=== PATIENT | female | born 1955 | race Caucasian/White ===

== ENCOUNTER 2020-09-08 10:28 | Outpatient (CLI) | payer BC, SELFPAY ==
--- NOTE | 2020-09-08 10:34 | MM_ITS ---
WS: [id number] Exam: [place] [id number] Date/Time of Exam: 09/08/2020 10:54 AM Reason For Exam: SCREENING VIEWS: MLO and CC views both breasts. Comparison made with prior exam of 09/16/2014, 09/06/2017 and 11/13/2018. Findings: There was no sign of mass, architectural distortion or suspicious calcification in either breast. Fa tty MM/[place] [id number] Impression: BI-RADS: 2-Benign FOLLOW-UP: 1 Year Follow-up This mammogram was also analyzed by the Computer Aided Detection System R2 Imag e Teaching Aide.
== END 2020-09-08 10:29 | disposition home or self-care (01) ==
PROVIDERS: PCP Nurse Practitioner Family; Visit Provider Nurse Practitioner Family
DX: Z12.31 Encounter for screening mammogram for malignant neoplasm of breast (principal)
CPT/HCPCS: 77067

== ENCOUNTER 2021-09-08 09:36 | Outpatient (CLI) | payer BC, SELFPAY ==
--- NOTE | 2021-09-08 09:51 | MM_ITS ---
WS: [id number] .. BILATERAL SCREENING 3D TOMOSYNTHESIS DIGITAL MAMMOGRAM WITH CAD HISTORY: SCREENING COMPARISON: 09/08/2020, 11/12/2018 Bilateral CC and MLO views submitted. Computer aided detection analyzed. Breast composition: There are scattered areas of fibroglandular density. No suspicious masses, microc alcifications or architectural distortion. MM/[place] [id number] IMPRESSION: BI-RADS: 1-Negative FOLLOW UP: 1 Year Follow-up
== END 2021-09-08 09:37 | disposition home or self-care (01) ==
LOC: RAD 09:42
PROVIDERS: PCP Nurse Practitioner Family; Visit Provider Nurse Practitioner Family
DX: Z12.31 Encounter for screening mammogram for malignant neoplasm of breast (principal)
CPT/HCPCS: 77063; 77067

== ENCOUNTER 2022-10-19 10:16 | Outpatient (CLI) | payer OTHER, SELFPAY ==
--- NOTE | 2022-10-19 10:31 | MM_ITS ---
WS: [id number] SCREENING DIGITAL TOMOSYNTHESIS MAMMOGRAM WITH CAD HISTORY: SCREENING COMPARISON: 09/08/2021, 09/08/2020 Bilateral CC and MLO with tomosynthesis views submitted. Synthetic mammography reviewed. Computer aid ed detection analyzed. Breast composition: There are scattered areas of fibroglandular density. No suspicious masses, microc alcifications or architectural distortion. Vascular calcifications. MM/[place] [id number] IMPRESSION: BI-RADS: 1-Negative FOLLOW UP: 1 Year Follow-up
== END 2022-10-19 10:17 | disposition home or self-care (01) ==
PROVIDERS: PCP Nurse Practitioner Family; Visit Provider Nurse Practitioner Family
DX: Z12.31 Encounter for screening mammogram for malignant neoplasm of breast (principal)
CPT/HCPCS: 77063; 77067

== ENCOUNTER 2023-08-01 11:12 | Outpatient (CLI) | payer OTHER, SELFPAY ==
--- NOTE | 2023-08-01 | ECG_ITS ---
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 Interpretive Statements NAME OF STUDY: TREADMILL STRESS TEST INDICATION: ATYPICAL CHEST PAIN; DIZZINESS PROCEDURE: At the baseline, the patient's blood pressure was 142/88 with a heart rate of 83. The baseline electrocardiogram showed normal sinus rhythm with diffuse nonspecific T wave changes. Poor R wave progression. Possible old high lateral wall CT. The patient exercised for 6 minutes on a standard Bryce protocol. Patient attained a maximum heart rate of 164 beats per minute(109% of the maximum predicted heart rate) with a blood pressure at the peak exercise of 173/72 mm Hg. The EKG at the peak exercise revealed diffuse nonspecific ST-T changes. Patient did not have any chest pain or any significant cardiac arrhythmias with the exercise During the recovery phase, there were no new changes. Blood pressure at the end of the recovery phase was 143/59 mm Hg with a heart rate of 91 per minute. CONCLUSION: 1. Nonspecific EKG response to treadmill exercise 2. No exercise-induced chest pain or cardiac arrhythmia 3. Slightly impaired exercise tolerance, attained a maximum of 7.0 METs Electronically Signed On 08-06-2023 19:50:30 CDT by Ronen Sheridan M.D. [email or web address]
[2023-08-01 11:51] VITALS: BMI 23.1
[2023-08-01 12:28] VITALS: BP 136/76; PULSE 81
== END 2023-08-01 11:13 | disposition home or self-care (01) ==
PROVIDERS: PCP Nurse Practitioner Family; Visit Provider Nurse Practitioner Family
DX: R42 Dizziness and giddiness (principal); R07.89 Other chest pain; I10 Essential (primary) hypertension
CPT/HCPCS: 93017

== ENCOUNTER 2024-01-24 14:12 | Outpatient (CLI) | payer OTHER, SELFPAY ==
--- NOTE | 2024-01-24 14:19 | MM_ITS ---
WS: [id number] BILATERAL 3D TOMOSYNTHESIS DIGITAL SCREENING MAMMOGRAPHY WITH CAD CLINICAL INFORMATION: SCREENING HISTORY: Screening mammogram. No current complaints. COMPARISON: 2022 TECHNIQUE: Bilateral CC and MLO views. FINDINGS: Scattered fibroglandular densities bilaterally. No suspicious focal mass, asymmetry, calcifications, or architectural distortion. No evidence of malignancy. Incidental punctate calcification LEFT breast . Vascular calcification. MM/[place] [id number] IMPRESSION: DENSITY: There are scattered areas of fibroglandular density. BI-RADS: 2 - Benign. FOLLOW UP: 1 Year Follow-up Recommend return to annual screening mammography.
== END 2024-01-24 14:13 | disposition home or self-care (01) ==
PROVIDERS: PCP Nurse Practitioner Family; Visit Provider Nurse Practitioner Family
DX: Z12.31 Encounter for screening mammogram for malignant neoplasm of breast (principal)
CPT/HCPCS: 77063; 77067

== ENCOUNTER 2024-02-14 09:42 | Outpatient (CLI) | payer OTHER, SELFPAY ==
--- NOTE | 2024-02-14 09:49 | XR_ITS ---
WS: [id number] Exam: XR shoulder RT min 2V* [id number] Date/Time of Exam: 02/14/2024 9:51 AM Reason For Exam: RIGHT SHOULDER JOINT PAIN No fracture or dislocation. Degenerative change of the glenohumeral joint and the AC joint. Normal so ft tissues. IMPRESSION1. Mild to moderate degenerative change. No fracture.
== END 2024-02-14 09:43 | disposition home or self-care (01) ==
PROVIDERS: PCP Nurse Practitioner Family; Visit Provider Family Medicine
DX: M25.511 Pain in right shoulder (principal)
CPT/HCPCS: 73030

== ENCOUNTER 2024-03-26 07:28 | Day surgery (SDC) | payer OTHER, SELFPAY ==
[2024-03-26 07:48] VITALS: BP 126/73; PULSE 52; RESP 18; TEMP 36.6; O2SAT 99; BMI 23.1
[2024-03-26] MEDS: sodium chloride 0.9% 1,000 ML 30 ML IV (08:03)
--- NOTE | 2024-03-26 08:14 | P.HPUD_ITS ---
Surgery/Procedure H&P Update DATE OF PROCEDURE: March 26, 2024 DATE H&P PERFORMED: 03/06/24 H&P UPDATE INFORMATION: I have reviewed H&P completed within last 30 days, I have examined patient prior to procedure, No changes to prior documentation and H&[place] in [facility] [place] date indicated PLANNED PROCEDURE: Operation Date: 03/26/24 09:00 Proposed Procedures p Colonoscopy 22750, G0105, Z12.11(Not Applicable) - Sanjay Newberry MD
--- NOTE | 2024-03-26 08:14 | W.PM.OPSUD ---
Surgery/Procedure H&P Update DATE OF PROCEDURE: March 26, 2024 DATE H&P PERFORMED: 03/06/24 H&P UPDATE INFORMATION: I have reviewed H&P completed within last 30 days, I have examined patient prior to procedure, No changes to prior documentation and H&P is in [facility] [place] on date indicated PLANNED PROCEDURE: Operation Date: 03/26/24 09:00 Proposed Procedures p Colonoscopy 29955, G0105, Z12.11(Not Applicable) - Sanjay Newberry MD
--- NOTE | 2024-03-26 08:31 | ANES.PREANE2 ---
Pre-Anesthetic Assessment Height/Weight: Height 5 ft 6 in Weight 143 lb Temp Pulse Resp BP Pulse Ox O2 Del Method 97.8 F 52 L 18 126/73 99 Room Air 03/26/24 07:48 03/26/24 07:48 03/26/24 07:48 03/26/24 07:48 03/26/24 07:48 03/26/24 07:48 Preop Diagnosis: Screening colonoscopy Operation Date: 03/26/24 09:00 Proposed Procedures p Colonoscopy 14918, G0105, Z12.11(Not Applicable) - Sanjay Newberry MD Was Beta Mary Ann taken within 24 hours: N/A Was Clonidine taken within 24 hours: N/A Last intake: Intake Last Liquid Date 03/25/24 Last Liquid Time 20:00 Last Solid Date 03/24/24 Last Solid Time 18:00 Social No alcohol and No tobacco Exam alert, oriented x 3, clear to auscultation bilaterally and regular rate & rhythm (Ejection flow murmur heard on auscultation) Airway Submandibular: within normal limits Cervical ROM: within normal limits Mallampati: Class III Dentition: full Anesthetic Plan ASA status: 2 Anesthesia: MAC Other: No prior issues with anesthesia Completed bowel prep History of hypertension on amlodipine and lisinopril Patient denies any pulmonary issues States she had a murmur as a child but was not told of any murmur recently. Ejection flow murmur heard on auscultation over the left sternal border today. Patient states that she does not get short of breath with exertion. She works at [employer] Negative stress test earlier this year METs greater than 4 Plan for MAC anesthetic Medications/Allergies Home Medications Medication Instructions Recorded Confirmed Last Taken Type amlodipine 10 mg tablet 10 mg PO DAILY 02/28/24 03/26/24 03/25/24 History lisinopril 40 mg tablet 40 mg PO DAILY 02/28/24 03/26/24 03/26/24 History metoprolol tartrate 25 mg tablet 25 mg PO DAILY 02/28/24 03/26/24 03/26/24 History sertraline 25 mg tablet 25 mg PO BEDTIME 02/28/24 03/26/24 03/25/24 History simvastatin 20 mg tablet 20 mg PO BEDTIME 02/28/24 03/26/24 03/25/24 History ondansetron HCl 8 mg tablet 8 mg PO Q8H PRN nausea and 03/06/24 03/26/24 Unknown Rx vomiting #3 tabs aspirin 81 mg tablet,delayed 81 mg PO DAILY 03/20/24 03/26/24 03/25/24 History release fluticasone propionate 50 1 spray intranasal BID PRN Allergy 03/20/24 03/26/24 Unknown History mcg/actuation nasal Symptoms spray,suspension melatonin 10 mg tablet 10 mg PO DAILY 03/20/24 03/26/24 03/25/24 History ufzerndz-xbk-fezpn ac 400 1 tab PO DAILY 03/20/24 03/26/24 03/25/24 History mcg-calcium carb 500 mg-vit K1 20 mcg tablet (Women's 50 Plus Multivitamin) omega-3s 720 mg-dha 300 mg-epa 360 1 cap PO DAILY 03/20/24 03/26/24 03/25/24 History mg-fish oil 1,200 mg capsule triamcinolone acetonide 0.025 % 1 applic topical BID 03/20/24 03/26/24 Unknown History topical cream vitamins A,C,U-ueda-psqrib 4,296 1 cap PO BID 03/20/24 03/26/24 03/25/24 History mcg-226 mg-90 mg capsule (PreserVision AREDS) Allergies Allergy/AdvReac Type Severity Reaction Status Date / Time Sulfa (Sulfonamide Allergy Unknown Verified 03/26/24 07:47 Antibiotics) Current Medications Generic Name Dose Route Start Last Admin Trade Name Freq PRN Reason Stop Dose Admin Sodium Chloride 1,000 mls @ 30 mls/hr 03/26/24 07:45 03/26/24 08:03 Sodium Chloride 0.9% IV 30 mls/hr .Q24H JEAN-CLAUDE Administration PFSH Anesthesia Family History Other CAD (coronary artery disease) Social History Smoking and tobacco/nicotine status: former use of tobacco/nicotine Quit status (tobacco/nicotine): has quit using Data Anesthesia Cardiac Studies: No Data to Display
[2024-03-26 09:14] VITALS: BP 111/65; PULSE 56; RESP 18; TEMP 36.2; O2SAT 100
--- NOTE | 2024-03-26 09:20 | ANE.PACU2 ---
Inpatient post-anesthesia follow up: Airway intact: Yes Vital signs: Temperature 97.2 F Pulse Rate 70 Respiratory Rate 18 Blood Pressure 143/70 Pulse Oximetry 99 Oxygen Delivery Me thod Room Air Oxygen Flow Rate Fraction of Inspir ed Oxygen Hydration adequate: Yes Nausea and vomiting: No Pain level: 1 Mental status: Baseline
[2024-03-26 09:22] VITALS: BP 143/70; PULSE 70; RESP 18; TEMP 36.2; O2SAT 99
== END 2024-03-26 09:38 | disposition home or self-care (01) ==
PROVIDERS: PCP Nurse Practitioner Family; Visit Provider Surgery
PROC: 0DJD8ZZ Inspection of Lower Intestinal Tract, Via Natural or Artificial Opening Endoscopic (ICD-10-PCS; CPT 45378; principal; 2024-03-26 09:00)
DX: Z12.11 Encounter for screening for malignant neoplasm of colon (principal); D12.8 Benign neoplasm of rectum; K64.8 Other hemorrhoids; I10 Essential (primary) hypertension; Z87.891 Personal history of nicotine dependence
CPT/HCPCS: 45380; 88305; J2704; J7030

== ENCOUNTER 2025-02-15 17:45 | Outpatient (CLI) | payer OTHER, SELFPAY ==
--- NOTE | 2025-02-15 17:52 | XRR_ITS ---
PROCEDURE INFORMATION: Exam: XR Right Ribs with PA Chest Exam date and time: 02/15/2025 5:53 PM Age: 69 years old Clinical indication: Painful respiration; Additional info: Upper back/ RT lateral rib pain post fall x 3 days ago; Multiple small abrasions/hematoma to posterior RT rib area. TECHNIQUE: Imaging protocol: Radiologic exam of the right ribs with PA chest. Views: 3 views Total images: 1 COMPARISON: 1. CR XR chest 1V [id number] 04/03/2019 6:25 PM 2. CR XR shoulder RT min 2V* [id number] 02/14/2024 9:58 AM 3. CR XR thoracic spine 3V* [id number] 02/15/2025 5:53 PM FINDINGS: Limitations: No fiducial skin marker was placed at the site of clinical concern. Lungs: Right-sided small sub-5 mm stable pulmonary nodules characteristic of prior exposure to granulomatous disease or small pulmonary hamartomas, not significantly changed. Lungs are well-aerated without focal acute pathologic pulmonary parenchymal process. Pleural spaces: No significant pleural effusion. No pneumothorax. Heart/Mediastinum: Normal heart size. Vasculature: Mild aortic atherosclerotic calcification. Bones/joints: Moderate generalized degenerative changes of the vertebral column characterized by multilevel osteophyte formation, degenerative disc height loss and facet arthrosis commensurate with patient's age. Acromioclavicular joint mild chronic degenerative arthrosis. Shoulder glenohumeral osteoarthritis. No acute displaced fracture, subluxation or dislocation. Thoracolumbar S shaped 10-15 degree scoliosis curvature. Qualitative demineralization of bones (osteopenia) limiting evaluation for nondisplaced fractures. Soft tissues: Soft tissues are normal as visualized, demonstrating no masses or induration. XR/XR ribs RT mn 3V w CXR1V [id number] IMPRESSION: 1. No acute displaced fracture with an intermediate degree of confidence. 2. Thoracolumbar S shaped 10-15 degree scoliosis curvature. 3. No acute cardiopulmonary disease or adverse interval change radiographically. 4. Moderate degenerative skeletal changes of the spine, and other chronic/nonacute findings as described above. COMMENTS: 1. Qualitative demineralization of bones (osteopenia) limiting evaluation for nondisplaced fractures. 2. If symptoms persist or worsen, consider repeat imaging with a fiducial at the troublesome clinical area of concern or a follow-up study in 7-10 days.
--- NOTE | 2025-02-15 17:52 | XRR_ITS ---
PROCEDURE INFORMATION: Exam: XR Thoracic Spine Exam date and time: 02/15/2025 5:53 PM Age: 69 years old Clinical indication: Pain in thoracic spine; Additional info: Upper back/ RT lateral rib pain post fall x 3 days ago; Multiple small abrasions/hematoma to posterior RT rib/upper back area. TECHNIQUE: Imaging protocol: Radiologic exam of the thoracic spine. Views: 3 views. Total images: 5 COMPARISON: 1. CR XR chest 1V [id number] 04/03/2019 6:25 PM 2. CR XR ribs RT mn 3V w CXR1V [id number] 02/15/2025 5:53 PM FINDINGS: Limitations: No fiducial skin marker was placed at the site of clinical concern. Bones/joints: Moderate generalized degenerative changes of the vertebral column characterized by multilevel osteophyte formation, degenerative disc height loss and facet arthrosis commensurate with patient's age. No acute displaced fracture, subluxation or dislocation. Qualitative demineralization of bones (osteopenia) limiting evaluation for nondisplaced fractures. Soft tissues: Soft tissues are normal as visualized, demonstrating no masses or induration. No manifestations of laceration, subcutaneous emphysema or retained soft tissue radiopaque foreign body. Lungs: The visualized portions of the lungs appear well-aerated without focal pathologic pulmonary parenchymal process. Pleural spaces: No pleural effusion or pneumothorax insofar as the pleural contours are visualized within the field of view. Heart/Mediastinum: Normal heart size. Vasculature: Mild aortic atherosclerotic calcification. XR/XR thoracic spine 3V* [id number] IMPRESSION: 1. No acute displaced fracture with an intermediate degree of confidence. 2. Moderate degenerative skeletal changes of the spine, and other chronic/nonacute findings as described above. COMMENTS: 1. Qualitative demineralization of bones (osteopenia) limiting evaluation for nondisplaced fractures. 2. If symptoms persist or worsen, consider repeat imaging with a fiducial at the troublesome clinical area of concern or a follow-up study in 7-10 days.
== END 2025-02-15 17:46 | disposition home or self-care (01) ==
LOC: RAD 17:46
PROVIDERS: PCP Nurse Practitioner Family; Visit Provider Nurse Practitioner
DX: S29.9XXA Unspecified injury of thorax, initial encounter (principal); W19.XXXA Unspecified fall, initial encounter
CPT/HCPCS: 71101; 72072

== ENCOUNTER 2025-02-18 09:18 | Outpatient (CLI) | payer OTHER, SELFPAY ==
--- NOTE | 2025-02-18 09:25 | MM_ITS ---
WS: [id number] BILATERAL 3D TOMOSYNTHESIS DIGITAL SCREENING MAMMOGRAPHY WITH CAD CLINICAL INFORMATION: SCREENING HISTORY: Screening mammogram. No current complaints. COMPARISON: 2023 TECHNIQUE: Bilateral CC and MLO views. FINDINGS: Scattered fibroglandular densities bilaterally. No suspicious focal mass, asymmetry, calcifications, or architectural distortion. No evidence of malignancy. Vascular calcification. A few incidental punctate calcifications. MM/MM scr tomosynthesis [id number] IMPRESSION: DENSITY: There are scattered areas of fibroglandular density. BI-RADS: 2 - Benign. FOLLOW UP: 1 Year Follow-up Recommend return to annual screening mammography.
== END 2025-02-18 09:19 | disposition home or self-care (01) ==
LOC: RAD 09:21
PROVIDERS: PCP Nurse Practitioner Family; Visit Provider Nurse Practitioner Family
DX: Z12.31 Encounter for screening mammogram for malignant neoplasm of breast (principal); R92.323 Mammographic fibroglandular density, bilateral breasts; R92.1 Mammographic calcification found on diagnostic imaging of breast
CPT/HCPCS: 77063; 77067